=== PATIENT | male | born 1985 | race African-American/Black ===

== ENCOUNTER 2025-01-24 19:32 | Emergency (ER) | payer SELFPAY ==
[~2025-01-24] VITALS: Ht 188 cm; Wt 83.9 kg
[2025-01-24] MEDS ORDERED: CYCLOBENZAPRINE10 MG PO (20:32)
[2025-01-24] MEDS: KETOROLAC TROMETHAMINE 60 MG/2 ML VIAL IM ONE (20:52)
[2025-01-24] MEDS: CYCLOBENZAPRINE HCL 10 MG TAB PO ONE (20:52)
[2025-01-24 20:58] VITALS: PULSE 74; RESP 18; TEMP 98.2; O2SAT 100
[2025-01-24] MEDS ORDERED: METFORMIN HCL1000 MG PO (21:02)
[2025-01-24] MEDS ORDERED: ZESTRIL20 MG PO (21:02)
== END 2025-01-24 21:53 | disposition home or self-care (01) ==
LOC: ER 20:20
DX: M54.6 Pain in thoracic spine (principal); M54.50 Low back pain, unspecified; M25.552 Pain in left hip; M25.551 Pain in right hip; M25.562 Pain in left knee; V43.52XA Car driver injured in collision with other type car in traffic accident, initial encounter; Y92.488 Other paved roadways as the place of occurrence of the external cause; I10 Essential (primary) hypertension; E11.9 Type 2 diabetes mellitus without complications; E78.5 Hyperlipidemia, unspecified
CPT/HCPCS: 99282; J1885